=== PATIENT | male | born 1980 | race American Indian/Alaskan Native ===

== ENCOUNTER 2017-10-08 22:18 | Emergency (ER) | payer SELFPAY ==
[2017-10-08] MEDS ORDERED: MORPHINE IV ONE (23:56)
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
--- NOTE | 2017-10-09 00:20 | XRay Report ---
FINAL REPORT PROCEDURE: XR FEMUR 2+V LT TECHNIQUE: LEFT femur radiographs, AP and lateral views. HISTORY: leg injury COMPARISON: No prior studies are available for comparison. FINDINGS: Fracture (s) and/or Dislocation(s): None . Joint space(s): Normal . Soft tissues: Normal . Bone mineralization: Normal . Foreign bodies: None . IMPRESSION: Normal Examination
[2017-10-09] MEDS ORDERED: NACL 0.9% 1000 ML 1,000 ML IV ONE (00:22)
--- NOTE | 2017-10-09 00:22 | XRay Report ---
FINAL REPORT PROCEDURE: XR TIBIA FIBULA 2V LT TECHNIQUE: LEFT tibia and fibula radiographs, AP and lateral views. CPT 95636 HISTORY: leg injury COMPARISON: No prior studies are available for comparison. FINDINGS: Fracture (s) and/or Dislocation(s): There is a spiral fracture through the distal tibia. The distal fragment is laterally displaced. The overlap of fragments is by approximately 1.5 centimeters. A oblique fracture through the proximal fibula is identified. The distal fragment is laterally displaced. The remaining osseous structures appear intact.. Joint space(s): Normal . Soft tissues: Mild soft tissue swelling.. Bone mineralization: Normal . Foreign bodies: None . IMPRESSION: Fractures of the distal tibia and proximal fibula as discussed. Mild diffuse soft tissue swelling..
[2017-10-09] MEDS ORDERED: MORPHINE IV ONE (02:05)
[2017-10-09] MEDS ORDERED: TENIVAC IM ONE (02:05)
[2017-10-09 02:51] VITALS: BP 110/55
== END 2017-10-09 02:50 | disposition home or self-care (01) ==
LOC: ED 22:18
DX: S82.832A Other fracture of upper and lower end of left fibula, initial encounter for closed fracture (principal); S82.302A Unspecified fracture of lower end of left tibia, initial encounter for closed fracture; V29.9XXA Motorcycle rider (driver) (passenger) injured in unspecified traffic accident, initial encounter; Y93.89 Activity, other specified; Y92.89 Other specified places as the place of occurrence of the external cause; Y99.8 Other external cause status
CPT/HCPCS: 29515; 73552; 73590; 90471; 90714; 96374; 96376; 99284; J2270; J7030